=== PATIENT | female | born 1975 | race Hispanic/Latino ===

== ENCOUNTER → 2018-10-04 | Day surgery (SDC) | payer BC ==
[~2018-10-04] MED LIST: ACETAMINOPHEN 1000 MG/100 ML IV ONE; ASPIR 8181 MG PO; CLONIDINE PO; COREG12.5 MG PO; CYMBALTA30 MG PO; DEXAMETHASONE SOD PHOS INJ 4 MG/ML VIAL ONE; EXCEDRIN MIGRA1 EAC3 PO; FENTANYL CITRATE/PF 100MCG/2 ML INJ ONE; GLYCOPYRROLATE INJ 1MG/ 5 ML SYR ONE; HYDRALAZINE HCL 20 MG/ML VIAL ONE; HYDROMORPHONE 2MG/ML 2 MG/ML ML ONE; IOPAMIDOL 610MG/1ML 300 MG/ML VIAL IV ONE; KLONOPIN1 MG PO; LEVOFLOXACIN 500MG/D5W 100ML 100 ML IV ONE; LIDOCAINE HCL 2% LOCAL INJ 5 ML SDV VIAL INJ ONE; LIPITOR10 MG PO; LISINOPRIL-HCT1 EAC1 PO; MAXALT10 MG PO; MIDAZOLAM HCL 2 MG/2 ML VIAL ONE; MORPHINE SULFATE INJ 4 MG/ML INJ 1ML ONE; ONDANSETRON HCL INJ 2MG/ML 2ML 2 MG/ML VIAL ONE; PROPOFOL IV EMULSION 10 MG/ML 20 ML VIAL ONE; SEVOFLURANE INHAL SOLN 250 ML PEN BTL ONE; TRAZODONE HCL50 MG PO
--- OUTSIDE RECORDS SUMMARY | 2018-10-04 06:02 | XMS REPORT | Clinical Summary ---
Author Author [facility] Organization [facility] Address Unknown Phone Unavailable Care Team Providers Care Snailer Name Role Phone Lorne Mcintosh MD PCP Allergies No Known Allergies Medications End Date Status Medication Sig Dispensed Refills Start Date Active escitalopram (LEXAPRO) 20 Take 20 mg by 0 MG tablet mouth daily. Active clonAZEPAM (KlonoPIN) 1 Take 1 mg by 0 MG tablet mouth 3 (three) times a day as needed. Active zolpidem (AMBIEN) 10 mg Take 10 mg by 0 tablet mouth nightly as needed for sleep. Active traZODone (DESYREL) 50 MG Take 50 mg by 0 tablet mouth nightly. Active ARIPiprazole (ABILIFY) 5 0 MG tablet 8 Active clonIDINE (CATAPRES) 0.1 0 MG tablet 8 Active eszopiclone (LUNESTA) 3 0 mg tablet 8 Active hydrALAZINE (APRESOLINE) 0 50 MG tablet 8 Active lisinopril-hydrochlorothi 0 azide 8 (PRINZIDE,ZESTORETIC) 20-25 mg per tablet Active rizatriptan [employer]LE FIN[employer] INSPECTOR 0 (MAXALT-SHUTTLE FINAL INSPECTOR) 10 MG 8 disintegrating tablet 07/05/2018 ibuprofen (ADVIL,MOTRIN) Take 1 tablet 30 tablet 0 600 MG tablet (600 mg 8 total) by mouth every 8 (eight) hours as needed for moderate pain for up to 30 days. 08/08/2018 ibuprofen (ADVIL,MOTRIN) Take 1 tablet 30 tablet 0 600 MG tablet (600 mg 9 total) by mouth every 6 (six) hours as needed for moderate pain for up to 30 days. Active Problems Not on file Encounters Care Team Description Date Type Specialty Frandy Chamorro MD Calculus of ureter (Primary Dx); Uric acid nephrolithiasis 09/28/2018 Transcribe Access Orders Gurvinder Egan Jr., MD Allodynia (Primary Dx); Drug-seeking behavior; Depression with somatization 07/08/2018 Emergency Emergency Medicine - 07/09/2018 Gurvinder Egan Jr., MD Chest pain, unspecified type (Primary Dx) 06/04/2018 Emergency Emergency Medicine - 06/05/2018 after 10/03/2017 Social History Date Tobacco Use Types Packs/Day Years Used Current Every Day Smoker Smokeless Tobacco: Never Used Tobacco Cessation: Ready to Quit: No; Counseling Given: Yes Comments: 2-3 cigs/day Alcohol Use Drinks/Week oz/Week Comments Yes socially Sex Assigned at Date Recorded Not on file Industry Job Start Date Occupation Not on file Not on file Not on file Travel End Travel History Travel Start No recent travel history available. Last Filed Vital Signs Time Taken Vital Sign Reading 07/09/2018 2:58 AM [employer] Blood Pressure 159/91 07/09/2018 2:58 AM [employer]IST Pulse 72 07/08/2018 9:55 PM [employer] Temperature 36.9 C (98.5 F) 07/09/2018 2:58 AM [employer]IST Respiratory Rate 18 07/09/2018 2:58 AM [employer]IST Oxygen Saturation 100% - Inhaled Oxygen - Concentration 07/08/2018 9:55 PM [employer]IST Weight 64.4 kg (142 lb) 07/08/2018 9:55 PM [employer] Height 162.6 cm (5' 4") 07/08/2018 9:55 PM [employer]IST Body Mass Index 24.37 Plan of Treatment Health Maintenance Due Date Last Done Comments CERVICAL CANCER SCREENING 1997 INFLUENZA VACCINE 01/18/2019 Procedures Comments Procedure Name Priority Date/Time Associated Diagnosis XR ABDOMEN 1 VW Routine 09/28/2018 Calculus of ureter 11:16 AM CDT Uric acid nephrolithiasis HCG QUALITATIVE, URINE Routine 07/09/2018 SCREEN 12:05 AM PATENT LAW SPECIALIST ESTIMATED GFR STAT 07/08/2018 11:34 PM [employer]ENT [employer]IST TROPONIN STAT 07/08/2018 11:34 PM [employer]ENT [employer]IST COMPREHENSIVE METABOLIC STAT 07/08/2018 PANEL 11:34 PM PATENT [employer] SPECIALIST HC COMPLETE BLD COUNT STAT 07/08/2018 W/AUTO DIFF 11:34 PM PATENT [employer]IST ECG ED PRELIMINARY Routine 07/08/2018 INTERPRETATION 11:13 PM [employer]IST RESPIRATORY PATHOGEN Routine 07/08/2018 PANEL 11:04 PM [employer]IST INFLUENZA ANTIGEN TEST, Routine 07/08/2018 REFLEX NEGATIVE TO RPP 11:04 PM PATENT [employer] SPECIALIST ECG 12-LEAD STAT 07/08/2018 10:53 PM PATENT [employer] SPECIALIST XR CHEST 2 VW STAT 07/08/2018 10:34 PM PATENT [employer] SPECIALIST TROPONIN Timed 06/05/2018 1:56 AM PATENT [employer] SPECIALIST XR CHEST 1 VW PORTABLE STAT 06/05/2018 12:05 AM PATENT [employer] SPECIALIST ECG ED PRELIMINARY Routine 06/05/2018 INTERPRETATION 12:01 AM PATENT LAW SPECIALIST ESTIMATED GFR STAT 06/04/2018 10:45 PM PATENT [employer] SPECIALIST B NATRIURETIC PEPTIDE STAT 06/04/2018 10:45 PM [employer]ENT [employer] SPECIALIST TROPONIN STAT 06/04/2018 10:45 PM PATENT [employer] SPECIALIST COMPREHENSIVE METABOLIC STAT 06/04/2018 PANEL 10:45 PM [employer]ENT [employer] SPECIALIST HC COMPLETE BLD COUNT STAT 06/04/2018 W/AUTO DIFF 10:45 PM PATENT LAW SPECIALIST ECG 12-LEAD STAT 06/04/2018 10:38 PM PATENT [employer] SPECIALIST after 10/03/2017 Results * XR Abdomen 1 Vw (09/28/2018 11:16 AM CDT) Narrative Performed At EXAMINATION:XR ABDOMEN 1 VW [facility] CLINICAL HISTORY:N20.1 Calculus of ureter, N20.0 Calculus of kidney, n20.1 n20.0 IMPRESSION: There are multiple pelvic phleboliths. There is a small calcification seen in the midpole the right kidney. Left kidney is obscured by overlying gas and stool. Intestinal gas pattern is nonspecific. Regional skeleton is intact. CT scan may provide additional information if clinically indicated. [facility] [id number] Procedure Note Hm Interface, Radiology Results Incoming - 09/28/2018 11:33 AM CDT EXAMINATION: XR ABDOMEN 1 VW CLINICAL HISTORY: N20.1 Calculus of ureter, N20.0 Calculus of kidney, n20.1 n20.0 IMPRESSION: There are multiple pelvic phleboliths. There is a small calcification seen in the midpole the right kidney. Left kidney is obscured by overlying gas and stool. Intestinal gas pattern is nonspecific. Regional skeleton is intact. CT scan may provide additional information if clinically indicated. [facility] [id number] Performing Organization Address City/State/Zipcode Phone Number [facility] [address] [place] [address] * hCG qualitative, urine screen (07/09/2018 12:05 AM PATENT LAW SPECIALIST) hCG qualitative, urine Negative Negative [facility] Comment: [facility] The manufacturers stated sensitivity of HcG test for serum is >/=10 mIU/ml and urine is >/=20mIU/ml. Specimen Urine Performing Organization Address City/[facility]/Zipcode Phone Number [facility] DEPARTMENT OF [address] [place] [address] PATHOLOGY AND GENOMIC MEDICINE [address] * Estimated GFR (07/08/2018 11:34 PM PATENT LAW SPECIALIST) Only the most recent of 2 results within the time period is included. Estimated GFR >=90 mL/min/1.73 m2 [facility] Comment: [facility] CatergoryUnitsInte rpretation G1 >=90 Normal or high G2 60-89Mildly decreased [id number] Mildly to moderately decreased P2x17-01 Moderately to severely decreased G4 15-29Severely decreased G5 <15Kidney failure The eGFR was calculated using the Chronic Kidney Disease Epidemiology Collaboration (CKD-EPI) equation. Interpretation is based on recommendations of the National Kidney Foundation-Kidney Disease Outcomes Quality Initiative (NKF-KDOQI) published in 2014. Specimen Plasma specimen Performing Organization Address City/[facility]/Zipcode Phone Number [facility] [address] [place] [phone] PATHOLOGY AND GENOMIC MEDICINE [address] * Troponin (07/08/2018 11:34 PM PATENT LAW SPECIALIST) Only the most recent of 3 results within the time period is included. Troponin <0.30 0.00 - 0.30 ng/mL [facility] Comment: [facility] 0.11 - 1.49 ng/mlMay indicate increased risk of acute coronary syndrome. >=1.5 ng/ml Consistent with acute myocardial infarction. The diagnostic value of a single normal or non-diagnostic result is questionable.Serial samples at 2-6 hour intervals are required to rule out acute myocardial injury. Specimen Plasma specimen Performing Organization Address City/[facility] [place] [address] PATHOLOGY AND GENOMIC MEDICINE [address] * CBC with platelet and differential (07/08/2018 11:34 PM PATENT [employer] SPECIALIST) Only the most recent of 2 results within the time period is included. WBC 8.6 4.2 - 11.0 k/uL [facility] RBC 3.72 (L) 4.04 - 5.86 m/uL [facility] HGB 12.0 11.5 - 15.3 g/dL [facility] HCT 36.0 34.0 - 45.0 % [facility] MCV 96.8 80.0 - 98.0 fL [facility] MCH 32.3 27.0 - 34.0 pg [facility] MCHC 33.3 31.5 - 36.5 g/dL [facility] RDW - SD 41.4 37.0 - 51.0 fL [facility] MPV 9.2 7.4 - 10.4 fL [facility] Platelet count 335 150 - 400 k/uL [facility] Nucleated RBC 0.00 /100 WBC [facility] Neutrophils 66.0 36.0 - 66.0 % [facility] Lymphocytes 24.2 24.0 - 44.0 % [facility] Monocytes 8.0 (H) 0.0 - 6.0 % [facility] Eosinophils 1.3 0.0 - 6.0 % [facility] Basophils 0.3 0.0 - 1.2 % [facility] Immature granulocytes 0.2 0.0 - 1.0 % [facility] Specimen Blood Performing Organization Address City/State/Zipcode Phone Number [facility] DEPARTMENT OF [address] [place] [address] PATHOLOGY AND GENOMIC MEDICINE [facility] [address] [place], [place] [phone] [place] [address] * Comprehensive metabolic panel (07/08/2018 11:34 PM PATENT LAW SPECIALIST) Only the most recent of 2 results within the time period is included. Sodium 137 135 - 150 mEq/L [facility] Potassium 3.2 (L) 3.5 - 5.0 mEq/L [facility] Chloride 102 98 - 112 mEq/L [facility] CO2 23 (L) 24 - 31 mmol/L [facility] Anion gap 12@ANIO 7 - 15 mEq/L [facility] BUN 8 7 - 18 mg/dL [facility] Creatinine 0.50 0.50 - 0.90 mg/dL [facility] Glucose 100 65 - 100 mg/dL [facility] Calcium 9.2 8.3 - 10.2 mg/dL [facility] Protein 6.8 6.3 - 8.3 g/dL [facility] Albumin 3.4 (L) 3.5 - 5.0 g/dL [facility] A/G ratio 1.0 0.7 - 3.8 [facility] Alkaline phosphatase 62 0 - 104 U/L [facility] AST 15 10 - 35 U/L [facility] ALT 14 5 - 50 U/L [facility] Total bilirubin <0.3 0.2 - 1.2 mg/dL [facility] Specimen Plasma specimen Performing Organization Address City/State/Zipcode Phone Number [facility] DEPARTMENT OF [address] [place] [address] PATHOLOGY AND GENOMIC MEDICINE [facility] [address] [place], [place] [phone] [place] [address] * ECG ED Preliminary Interpretation - Not an Order (07/08/2018 11:13 PM PATENT [employer] SPECIALIST) Only the most recent of 2 results within the time period is included. Narrative Performed At Gurvinder Egan Jr., MD 07/09/20182:36 PM ECG ED Preliminary Interpretation - Not an Order Performed by: Gurvinder Egan Jr., MD Authorized by: Gurvinder Egan Jr., MD ECG reviewed by ED Physician in the absence of a merchandising director: yes Interpretation: Interpretation: normal Rate: ECG rate:73 ECG rate assessment: normal Rhythm: Rhythm: sinus rhythm Ectopy: Ectopy: none QRS: QRS axis:Normal QRS intervals:Normal Conduction: Conduction: normal ST segments: ST segments:Normal T waves: T waves: normal Comments: No STEMI. * Respiratory pathogen panel (07/08/2018 11:04 PM PATENT LAW SPECIALIST) Respiratory pathogen Negative for all pathogens [facility] panel tested: HOSPITAL Negative for Adenovirus Negative for Coronavirus HKU1 Negative for Coronavirus NL63 Negative for Coronavirus 229E Negative for Coronavirus OC43 Negative for Human Metapneumovirus Negative for Rhinovirus/Enterovirus Negative for Influenza A Negative for Influenza A/H1 Negative for Influenza A/H3 Negative for Influenza A/H1-2009 Negative for Influenza B Negative for Parainfluenza Virus 1 Negative for Parainfluenza Virus 2 Negative for Parainfluenza Virus 3 Negative for Parainfluenza Virus 4 Negative for Respiratory Syncytial Virus Negative for Bordetella pertussis Negative for Chlamydophila pneumoniae Negative for Mycoplasma pneumoniae This real-time PCR assay detects the presence of nucleic acids (RNA or DNA) for the respiratory pathogens listed. A result of "Not-detected" does not exclude the possibility of the presence of one or more pathogens at concentrations less than the detectable limits of the assay. Comment: Specimen Information Specimen Source: Nares Specimen Site: Right Specimen Nares - Right Performing Organization Address City/[facility]/Zipcode Phone Number [facility] DEPARTMENT OF [address] [place] [address] PATHOLOGY AND GENOMIC MEDICINE [facility] [address] [place], [place] [phone] [place] [address] * Influenza antigen test, reflex negative to RPP (07/08/2018 11:04 PM PATENT LAW SPECIALIST) Influenza antigen Negative for Influenza A/B [facility]. [facility] Comment: Specimen Information Specimen Source: Nares Specimen Site: Right Specimen Nares - Right Performing Organization Address [facility]/Zipcode Phone Number [facility] [address] [facility] [place] [address] PATHOLOGY AND GENOMIC MEDICINE [place] [phone] [facility] [place], [place] [phone] [place] [address] * ECG 12 lead (07/08/2018 10:53 PM PATENT [employer] SPECIALIST) Only the most recent of 2 results within the time period is included. Ventricular rate 73 [facility] Atrial rate 73 [facility] WV interval 176 [facility] QRSD interval 86 [facility] QT interval 400 [facility] QTC interval 440 [facility] P axis 1 33 [facility] QRS axis 1 44 [facility] T wave axis 62 [facility] EKG impression Normal sinus rhythm-Normal [facility] MUSE ECG-In automated comparison with ECG of 04-JUN-2018 22:38,-No significant change was found- Narrative Performed At Performing Organization Address [facility] Cent[facility]ode Phone Number [facility] MUSE [address] [place] [address] * XR Chest 2 Vw (07/08/2018 10:34 PM PATENT [employer] SPECIALIST) Narrative Performed At EXAMINATION:XR CHEST 2 VW [facility] CLINICAL HISTORY:body aches COMPARISON:06/04/2018. FINDINGS: Two views of the chest demonstrate normal cardiomediastinal silhouette. Pulmonary vasculature is within normal limits. Both lungs are clear. No pleural disease is identified. Regional osseous structures is unremarkable. IMPRESSION: No radiographic evidence of acute cardiopulmonary process or active disease of the chest. [id number] Procedure Note Interface, Radiology Results Incoming - 07/08/2018 10:46 PM PATENT [employer] SPECIALIST EXAMINATION: XR CHEST 2 VW CLINICAL HISTORY: body aches COMPARISON: 06/04/2018. FINDINGS: Two views of the chest demonstrate normal cardiomediastinal silhouette. Pulmonary vasculature is within normal limits. Both lungs are clear. No pleural disease is identified. Regional osseous structures is unremarkable. IMPRESSION: No radiographic evidence of acute cardiopulmonary process or active disease of the chest. [facility]-[id number] Performing Organization Address [facility] Phone Number [facility] [address] [place] [address] * XR Chest 1 Vw Portable (06/05/2018 12:05 AM PATENT [employer] SPECIALIST) Narrative Performed At Examination:XR CHEST 1 VW PORTABLE [facility] Clinical History:chest pain Comparison: None. Technique: Single frontal view of the chest is obtained. Findings: The lungs are free of infiltrate. The heart size is normal. No pleural effusion is seen. Impression: No active cardiopulmonary disease identified. [facility]-[id number] Procedure Note Interface, Radiology Results Incoming - 06/05/2018 12:33 AM PATENT LAW SPECIALIST Examination: XR CHEST 1 VW PORTABLE Clinical History: chest pain Comparison: None. Technique: Single frontal view of the chest is obtained. Findings: The lungs are free of infiltrate. The heart size is normal. No pleural effusion is seen. Impression: No active cardiopulmonary disease identified. [id number] Performing Organization Address [facility] Phone Number [facility] [address] [place] [address] * B natriuretic peptide (06/04/2018 10:45 PM PATENT [employer] SPECIALIST) BNP 90 0 - 100 pg/mL [facility] Specimen Blood Performing Organization Address [facility] Cent[facility]ode Phone Number [facility] DEPARTMENT OF [address] [place] [address] PATHOLOGY AND GENOMIC MEDICINE [place] [address] [place], [place] [phone] [place] [address] after 10/03/2017 Insurance Payer Benefit Subscriber ID Type Phone Address Plan / Group BCBS BCBS xxxxxxxxxxxx PPO CHOICE PPO/NITO CARVAJAL PPO Advance Directives Patient has advance care planning documents on file. For more information, catalino glass contact: Ryan Hamilton [address] [place] [address]
--- OUTSIDE RECORDS SUMMARY | 2018-10-04 06:02 | XMS REPORT ---
[facility] Address Unknown Phone Unavailable Care Team Providers Care Data Communications Technician Name Role Phone Unavailable Unavailable Payers Payer Name Policy Type Policy Number Effective Date Expiration Date Problems This patient has no known problems. Allergies, Adverse Reactions, Alerts Allergy Name Allergy Type Status Severity Reaction(s) Onset Date Inactive Date Treating Clinician Comments No Known Allergies DA Active U 2018-07-09 00:00:00 No Known Drug Allergies DA Active U 2015-07-11 00:00:00 Medications This patient has no known medications. Results Test Description Test Time Test Comments Text Results Atomic Results Result Comments TROPONIN-I 2018-09-22 09:42:00 TROPONIN-I (test code=TROPI) <0.015 ng/mL 0-0.045 COMMENTS TO SLED MAKER: COLLECT 3 HOURS AFTER PREVIOUS [id number] 07:40:00* Test Item Value Reference Range Comments TROPONIN-I (test code=TROPI) <0.015 ng/mL 0-0.045 COMMENTS TO SLED MAKER: COLLECT 3 HOURS AFTER PREVIOUS [id number] 04:03:00* Test Item Value Reference Range Comments GLYCOSYLATED HEMOGLOBIN (HA1C) (test code=GLYHGB) 5.1 % HbA1 4.8-6.0 ESTIMATED AVERAGE GLUCOSE (test code=EAG) 100 MG/DL LIPID PROFILE (CORONARY RISK)2018-09-22 03:56:00* Test Item Value Reference Range Comments TRIGLYCERIDES (test code=TRIG) 89 mg/dL 20-150 CHOLESTEROL (test code=CHOL) 173 mg/dL 0-200 CHOLESTEROL/HDL RATIO (test code=CHOLHDL) 2.0 RATIO 0-4.9 RISK ASSOCIATED WITH CHOL/HDL RATIOS: Risk Male Female1/2 AVERAGE 3.43 3.27AVERAGE 4.97 4.442X AVERAGE 9.55 7.053X AVERAGE 23.39 11.04 REFERENCE VALUE IS RELATED TO RISK LEVELS ASRECOMMENDED BY THE [facility]. HEART, LUNG, AND BLOOD INST. HDL CHOLESTEROL (test code=HDL) 85 mg/dL 40-60 LIPOPROTEIN LDL (test code=LDL) 71 mg/dL 100-129 Reference Interval: mg/dL mmol/L Optimal <100 <2.6Near/above optimal 100-129 2.6- 3.3Borderline High 130-159 3.4-4.1High 160-189 4.1-4.9Very High >=190 >=4.9=========This LDL result is a direct measurement.========= BASIC METABOLIC [id number] 23:49:00* Test Item Value Reference Range Comments SODIUM (test code=NA) 141 mmol/L 136-145 POTASSIUM (test code=K) 3.2 mmol/L 3.5-5.1 Results called to by JUN1 09/21/18 2349Critical results verified and read back by Nurse? CHLORIDE (test code=CL) 104.0 mmol/L 98-107 CARBON DIOXIDE (test code=CO2) 30.0 mmol/L 21-32 ANION GAP (test code=GAP) 10.2 10-20 GLUCOSE (test code=GLU) 74 mg/dL 74-106 BLOOD UREA NITROGEN (test code=BUN) 12 mg/dL 7-18 GLOMERULAR FILTRATION RATE (test code=GFR) > 60 mL/min >=60 Estimated GFR by using Modified MDRD formula.Chronic kidney disease is defined as either kidney damageor GFR <60 mL/min/1.73 m2 for >3 months. CREATININE (test code=CREAT) 0.50 mg/dL 0.55-1.02 Note change in reference range due to change in reagent. BUN/CREATININE RATIO (test code=BUN/CREA) 24.0 10-20 CALCIUM (test code=CA) 8.7 mg/dL 8.5-10.1 [id number] 23:49:00* Test Item Value Reference Range Comments TROPONIN-I (test code=TROPI) <0.015 ng/mL 0-0.045 CBC W/O [id number] 23:49:00* Test Item Value Reference Range Comments WHITE BLOOD CELL (test code=WBC) 8.5 K/mm3 4.5-12.5 RED BLOOD CELL (test code=RBC) 3.89 mill/mm3 3.7-5.2 HEMOGLOBIN (test code=HGB) 12.3 gram/dL 11.5-15.5 HEMATOCRIT (test code=HCT) 38.0 % 36.0-46.0 MEAN CELL VOLUME (test code=MCV) 97.7 fL 80-98 MEAN CELL HGB (test code=MCH) 31.6 picogram 27.0-33.0 MEAN CELL HGB CONCETRATION (test code=MCHC) 32.4 gram/dL 33.0-36.0 RED CELL DISTRIBUTION WIDTH (test code=RDW) 11.5 % 11.6-16.2 PLATELET COUNT (test code=PLT) 316 K/mm3 150-450 MEAN PLATELET VOLUME (test code=MPV) 9.1 fL 6.7-11.0 CBC W/O [id number] 23:43:00* Test Item Value Reference Range Comments WHITE BLOOD CELL (test code=WBC) K/mm3 4.5-12.5 RED BLOOD CELL (test code=RBC) mill/mm3 3.7-5.2 HEMOGLOBIN (test code=HGB) 12.3 gram/dL 11.5-15.5 HEMATOCRIT (test code=HCT) 38.0 % 36.0-46.0 MEAN CELL VOLUME (test code=MCV) fL 80-98 MEAN CELL HGB (test code=MCH) picogram 27.0-33.0 MEAN CELL HGB CONCETRATION (test code=MCHC) gram/dL 33.0-36.0 RED CELL DISTRIBUTION WIDTH (test code=RDW) % 11.6-16.2 PLATELET COUNT (test code=PLT) K/mm3 150-450 MEAN PLATELET VOLUME (test code=MPV) fL 6.7-11.0 HCG SERUM [id number] 23:35:00* Test Item Value Reference Range Comments HCG SERUM QUAL (test code=HCGQL) NEGATIVE NEGATIVE This HCGQL test is NOT applicable for MALE patients.Check with nurse about probable order error.If Tumor Marker Test needed, nurse should order test "HCGTU"(Test #550.76498) - XR CHEST 1 [id number] 23:26:00 FAX: Karyna Reid DO [place]: [address]: REG Name: RIZWANA LONG [facility] : [birth year] Age/S: 43/F [address] Unit #: [id number] Loc: [place] [address] Phys: Karyna Reid DO Acct: [id number] Dis Date: Status: REG ER PHONE #: [phone] Exam Date: 09/21/2018 2300 FAX #: [phone] Reason: CHEST PAIN EXAMS: CPT CODE: [id number] XR CHEST 1 V [id number] EXAM: - XR CHEST 1 V HISTORY: Chest pain. COMPARISON: July 09, 2018. FINDINGS: Single AP view of the chest is provided. Heart si ze and vascularity are within normal limits. The lungs are clear of focal consolidation. No effusion, pneumothorax, or acute osseous abnormality. IMPRESSION: No radiographic evidence of acute ca rdiopulmonary process. at 7967 Reported and signed by: Mary Kate Knox MD CC: Karyna Reid DO Technologist: Gladys Gunderson nscrd Date/Time/By: 09/21/2018 (6805) : By: [email or web address] Orig Print D/T: S: 09/21/2018 (2156) PAGE 1 Shonda d Report - XR CHEST 1 [id number] 05:07:00 FAX: Joe Swartz MD [phone] [place]: [address]: REG FAX: Dinh Tio Saab [phone] Name: RIZWANA HERRERA [facility] : 1975 Age/S: 43/F [address] [facility] Unit #: [id number] Loc: [place] [address] Phys: Joe Swartz MD Acct: [id number] Dis Date: Status: REG ER PHONE #: [phone] Exam Date: 07/09/2018 0506 FAX #: [phone] Reason: CHEST PAIN EXAMS: CPT CODE: [id number] XR CHEST 1 V 45215 HISTORY: Chest pain. Location: C3 COMPARISO N:05/17/2018 FINDINGS: Aortic calcifications are pre sent. Heart size and vascularity are within normal limits. The lung s are clear of focal consolidation. No effusion, pneumothorax, or acute o sseous abnormality. IMPRESSION: 1. No focal consolidation. No other acute abnormalities. Electronically S igned by Richie Barragan MD on 07/09/2018 at 0507 Reported and signed by: Richie Barragan MD CC: Joe Swartz MD; Tio Nolen MD Technologist: Farzana Upton Trnscrd Date/Time/By: 07/09/2018 (0507) : By: [email or web address] Orig Print D/T: S: 07/09/2018 (0510) PAGE 1 Signed Report BASIC METABOLIC [id number] 04:47:00* Test Item Value Reference Range Comments SODIUM (test code=NA) 142 mmol/L 136-145 POTASSIUM (test code=K) 3.5 mmol/L 3.5-5.1 CHLORIDE (test code=CL) 108.0 mmol/L 98-107 CARBON DIOXIDE (test code=CO2) 25.0 mmol/L 21-32 ANION GAP (test code=GAP) 12.5 10-20 GLUCOSE (test code=GLU) 86 mg/dL 74-106 BLOOD UREA NITROGEN (test code=BUN) 7 mg/dL 7-18 GLOMERULAR FILTRATION RATE (test code=GFR) > 60 mL/min >=60 Estimated GFR by using Modified MDRD formula.Chronic kidney disease is defined as either kidney damageor GFR <60 mL/min/1.73 m2 for >3 months. CREATININE (test code=CREAT) 0.50 mg/dL 0.55-1.02 Note change in reference range due to change in reagent. BUN/CREATININE RATIO (test code=BUN/CREA) 12.8 10-20 CALCIUM (test code=CA) 8.2 mg/dL 8.5-10.1 HCG SERUM [id number] 04:47:00* Test Item Value Reference Range Comments HCG SERUM QUAL (test code=HCGQL) NEGATIVE NEGATIVE This HCGQL test is NOT applicable for MALE patients.Check with nurse about probable order error.If Tumor Marker Test needed, nurse should order test "HCGTU"(Test #550.27290) [id number] 04:47:00* Test Item Value Reference Range Comments TROPONIN-I (test code=TROPI) <0.015 ng/mL 0-0.045 BASIC METABOLIC [id number] 04:39:00* Test Item Value Reference Range Comments SODIUM (test code=NA) 142 mmol/L 136-145 POTASSIUM (test code=K) 3.5 mmol/L 3.5-5.1 CHLORIDE (test code=CL) 108.0 mmol/L 98-107 CARBON DIOXIDE (test code=CO2) mmol/L 21-32 ANION GAP (test code=GAP) 10-20 GLUCOSE (test code=GLU) mg/dL 74-106 BLOOD UREA NITROGEN (test code=BUN) mg/dL 7-18 GLOMERULAR FILTRATION RATE (test code=GFR) mL/min >=60 CREATININE (test code=CREAT) mg/dL 0.55-1.02 BUN/CREATININE RATIO (test code=BUN/CREA) 10-20 CALCIUM (test code=CA) mg/dL 8.5-10.1 HCG SERUM [id number] 04:39:00* Test Item Value Reference Range Comments HCG SERUM QUAL (test code=HCGQL) NEGATIVE NEGATIVE This HCGQL test is NOT applicable for MALE patients.Check with nurse about probable order error.If Tumor Marker Test needed, nurse should order test "HCGTU"(Test #550.25366) [id number] 04:39:00* Test Item Value Reference Range Comments TROPONIN-I (test code=TROPI) ng/mL 0-0.045 BASIC METABOLIC [id number] 04:38:00* Test Item Value Reference Range Comments SODIUM (test code=NA) 142 mmol/L 136-145 POTASSIUM (test code=K) 3.5 mmol/L 3.5-5.1 CHLORIDE (test code=CL) 108.0 mmol/L 98-107 CARBON DIOXIDE (test code=CO2) mmol/L 21-32 ANION GAP (test code=GAP) 10-20 GLUCOSE (test code=GLU) mg/dL 74-106 BLOOD UREA NITROGEN (test code=BUN) mg/dL 7-18 GLOMERULAR FILTRATION RATE (test code=GFR) mL/min >=60 CREATININE (test code=CREAT) mg/dL 0.55-1.02 BUN/CREATININE RATIO (test code=BUN/CREA) 10-20 CALCIUM (test code=CA) mg/dL 8.5-10.1 HCG SERUM [id number] 04:38:00* Test Item Value Reference Range Comments HCG SERUM QUAL (test code=HCGQL) NEGATIVE [id number] 04:38:00* Test Item Value Reference Range Comments TROPONIN-I (test code=TROPI) ng/mL 0-0.045 TROPONIN I [id number] 04:30:00* Test Item Value Reference Range Comments TROPONIN I RAPID (test code=TROPIRAP) 0.00 ng/mL <0.08 Please Note New Reference Range 0.00-0.079 ng/mL - Negative>or=0.08 ng/mL - Positive The use of serial sampling and testing protocol is arecommended practice.An elevated troponin level alone is often not sufficient fordiagnosis of myocardial infarction. Troponin results obtained by different assays may vary.Evaluation of the extent of myocardial damage based onincrease of troponin would be valid only if similarmethodology is used. CBC W/O [id number] 04:26:00* Test Item Value Reference Range Comments WHITE BLOOD CELL (test code=WBC) 6.9 K/mm3 4.5-12.5 RED BLOOD CELL (test code=RBC) 3.71 mill/mm3 3.7-5.2 HEMOGLOBIN (test code=HGB) 12.0 gram/dL 11.5-15.5 HEMATOCRIT (test code=HCT) 36.6 % 36.0-46.0 MEAN CELL VOLUME (test code=MCV) 98.7 fL 80-98 MEAN CELL HGB (test code=MCH) 32.3 picogram 27.0-33.0 MEAN CELL HGB CONCETRATION (test code=MCHC) 32.8 gram/dL 33.0-36.0 RED CELL DISTRIBUTION WIDTH (test code=RDW) 11.6 % 11.6-16.2 PLATELET COUNT (test code=PLT) 318 K/mm3 150-450 MEAN PLATELET VOLUME (test code=MPV) 9.1 fL 6.7-11.0 CREATINE KINASE (CK)2018-07-07 16:02:00* Test Item Value Reference Range Comments CREATINE KINASE (CK) (test code=CK) 62 IUnit/L 26-208 THYROID STIMULATING [id number] 16:02:00* Test Item Value Reference Range Comments THYROID STIMULATING HORMONE (test code=TSH) 4.300 uIU/mL 0.36-3.74 TSH REFERENCE RANGES: EUTHYROID: 0.35 - 4.3 mIU/mL HYPO : > 5.5 mIU/mL HYPER : < 0.35 mIU/mL [id number] 04:30:00* Test Item Value Reference Range Comments TROPONIN-I (test code=TROPI) <0.015 ng/mL 0-0.045 [id number] 00:37:00* Test Item Value Reference Range Comments CKMB (test code=CKMBT) < 1.0 ng/mL 0-6.0 [id number] 00:29:00* Test Item Value Reference Range Comments TROPONIN-I (test code=TROPI) <0.015 ng/mL 0-0.045 COMPREHENSIVE METABOLIC [id number] 00:29:00* Test Item Value Reference Range Comments SODIUM (test code=NA) 140 mmol/L 136-145 POTASSIUM (test code=K) 3.5 mmol/L 3.5-5.1 CHLORIDE (test code=CL) 106.0 mmol/L 98-107 CARBON DIOXIDE (test code=CO2) 28.0 mmol/L 21-32 ANION GAP (test code=GAP) 9.5 10-20 GLUCOSE (test code=GLU) 100 mg/dL 74-106 BLOOD UREA NITROGEN (test code=BUN) 6 mg/dL 7-18 GLOMERULAR FILTRATION RATE (test code=GFR) > 60 mL/min >=60 Estimated GFR by using Modified MDRD formula.Chronic kidney disease is defined as either kidney damageor GFR <60 mL/min/1.73 m2 for >3 months. CREATININE (test code=CREAT) 0.60 mg/dL 0.55-1.02 Note change in reference range due to change in reagent. BUN/CREATININE RATIO (test code=BUN/CREA) 10.6 10-20 TOTAL PROTEIN (test code=PROT) 6.3 gram/dL 6.4-8.2 ALBUMIN (test code=ALB) 3.3 g/dL 3.4-5.0 GLOBULIN (test code=GLOB) 3.0 gram/dL 2.7-4.2 ALBUMIN/GLOBULIN RATIO (test code=A/G) 1.1 0.75-1.50 CALCIUM (test code=CA) 8.0 mg/dL 8.5-10.1 BILIRUBIN TOTAL (test code=BILT) 0.20 mg/dL 0.0-1.0 SGOT/AST (test code=AST) 11 IUnit/L 15-37 SGPT/ALT (test code=ALT) 18 IUnit/L 12-78 ALKALINE PHOSPHATASE TOTAL (test code=ALKP) 65 IUnit/L 45-117 Note change in reference range due to change in reagent. [id number] 00:29:00* Test Item Value Reference Range Comments PHOSPHORUS (test code=PHOS) 3.0 mg/dL 2.5-4.9 [id number] 00:29:00* Test Item Value Reference Range Comments MAGNESIUM (test code=MAG) 2.2 mg/dL 1.8-2.4 COMPREHENSIVE METABOLIC [id number] 00:20:00* Test Item Value Reference Range Comments SODIUM (test code=NA) 140 mmol/L 136-145 POTASSIUM (test code=K) 3.5 mmol/L 3.5-5.1 CHLORIDE (test code=CL) 106.0 mmol/L 98-107 CARBON DIOXIDE (test code=CO2) mmol/L 21-32 ANION GAP (test code=GAP) 10-20 GLUCOSE (test code=GLU) mg/dL 74-106 BLOOD UREA NITROGEN (test code=BUN) mg/dL 7-18 GLOMERULAR FILTRATION RATE (test code=GFR) mL/min >=60 CREATININE (test code=CREAT) mg/dL 0.55-1.02 BUN/CREATININE RATIO (test code=BUN/CREA) 10-20 TOTAL PROTEIN (test code=PROT) gram/dL 6.4-8.2 ALBUMIN (test code=ALB) g/dL 3.4-5.0 GLOBULIN (test code=GLOB) gram/dL 2.7-4.2 ALBUMIN/GLOBULIN RATIO (test code=A/G) 0.75-1.50 CALCIUM (test code=CA) mg/dL 8.5-10.1 BILIRUBIN TOTAL (test code=BILT) mg/dL 0.0-1.0 SGOT/AST (test code=AST) IUnit/L 15-37 SGPT/ALT (test code=ALT) IUnit/L 12-78 ALKALINE PHOSPHATASE TOTAL (test code=ALKP) IUnit/L 45-117 [id number] 00:20:00* Test Item Value Reference Range Comments PHOSPHORUS (test code=PHOS) mg/dL 2.5-4.9 [id number] 00:20:00* Test Item Value Reference Range Comments MAGNESIUM (test code=MAG) mg/dL 1.8-2.4 CBC W/AUTO [id number] 23:50:00* Test Item Value Reference Range Comments WHITE BLOOD CELL (test code=WBC) 9.3 K/mm3 4.5-12.5 RED BLOOD CELL (test code=RBC) 3.47 mill/mm3 3.7-5.2 HEMOGLOBIN (test code=HGB) 11.3 gram/dL 11.5-15.5 HEMATOCRIT (test code=HCT) 34.3 % 36.0-46.0 MEAN CELL VOLUME (test code=MCV) 98.8 fL 80-98 MEAN CELL HGB (test code=MCH) 32.6 picogram 27.0-33.0 MEAN CELL HGB CONCETRATION (test code=MCHC) 32.9 gram/dL 33.0-36.0 RED CELL DISTRIBUTION WIDTH (test code=RDW) 11.8 % 11.6-16.2 RED CELL DISTRIBUTION WIDTH SD (test code=RDW-SD) 43.0 fL 37.0-51.0 PLATELET COUNT (test code=PLT) 288 K/mm3 150-450 MEAN PLATELET VOLUME (test code=MPV) 9.1 fL 6.7-11.0 NEUTROPHIL % (test code=NT%) 66.0 % 39.0-69.0 IMMATURE GRANULOCYTE % (test code=IG%) 0.3 % 0.0-5.0 LYMPHOCYTE % (test code=LY%) 24.5 % 25.0-55.0 MONOCYTE % (test code=MO%) 7.9 % 0.0-10.0 EOSINOPHIL % (test code=EO%) 1.1 % 0.0-5.0 BASOPHIL % (test code=BA%) 0.2 % 0.0-1.0 NUCLEATED RBC % (test code=NRBC%) 0.0 % 0-0 NEUTROPHIL # (test code=NT#) 6.11 K/mm3 1.8-7.7 IMMATURE GRANULOCYTE # (test code=IG#) 0.03 x10 3/uL 0-0.03 LYMPHOCYTE # (test code=LY#) 2.27 K/mm3 1.0-5.0 MONOCYTE # (test code=MO#) 0.73 K/mm3 0-0.8 EOSINOPHIL # (test code=EO#) 0.10 K/mm3 0.0-0.5 BASOPHIL # (test code=BA#) 0.02 K/mm3 0.0-0.2 NUCLEATED RBC # (test code=NRBC#) 0.00 K/mm3 0.0-0.1
[2018-10-04 10:30] VITALS: BP 155/94
--- NOTE | 2018-10-04 17:35 | Operative Report ---
DATE OF PROCEDURE: 10/04/2018 SURGEON: Frandy Chamorro MD PREOPERATIVE DIAGNOSES: 1. Recurrent urinary tract infections. 2. Right renal calculus, mid calyx, 6 x 8 mm. POSTOPERATIVE DIAGNOSES: 1. Recurrent urinary tract infections. 2. Right renal calculus, mid calyx, 6 x 8 mm. OPERATIONS: 1. Cystourethroscopy and bilateral retrograde pyelogram. 2. Right renal extracorporeal shock wave lithotripsy. VETERINARY PHYSIOLOGIST: Dr. Ruben Rosenbaum. ANESTHETIC: General. DESCRIPTION OF PROCEDURE: Ms. Mancera is a 43-year-old female, who presented with a chief complaint of pain on the right side and gross hematuria. She also complained of recurrent urinary tract infections and pelvic pain. A CT scan showed a right renal calculus. This patient was placed on the table in the lithotomy position and was prepped and draped in a sterile manner after satisfactory general anesthesia. A 23-Greek cystoscope was used and cystourethroscopy was performed and it was noted that the urethra was normal. Cystoscopy was then performed using both right-angle and Foroblique lens and it was noted that the bladder mucosa was normal except for the trigone, which showed marked trigonitis with cobblestone appearance. Both ureteral orifices were seen and were within normal position, configuration, and efflux. Right retrograde pyelogram was then performed using #8 bulb tip. Urethral catheter inserted at the right ureteral orifice and 5 mL of contrast material was injected. The retrograde showed the calculus in the right mid calyx about 6 x 8 mm. Left retrograde pyelogram was performed similarly. The left retrograde was normal. The bladder was drained. Cystoscope removed and the patient was placed on the table in the supine position. The lithotripsy was then brought into position and the stone was brought into position between F1 and F2 of the fluoroscopic monitors. The lithotripsy was then started starting at 2 kilovolts and slowly and gradually increased to 7 kilovolts. Observation of the stone pulverization was done at 250 shocks. At 3000 shocks, it was felt that the stone has completely pulverized. The patient from the table was moved to the recovery room, the patient tolerated the procedure well. Plan for this lady is to be placed on Cipro 250 mg one twice a day for two weeks, then one every night for six weeks. Ultracet tablet one every 6 to 8 hours p.r.n. and was given 20. She is to return to the office in one month. Frandy Chamorro MD MA/GUS /[id number]
== END | disposition home or self-care (01) ==
LOC: OR 05:58
PROVIDERS: ATTEND Specialist
DX: N20.0 Calculus of kidney (principal); R31.9 Hematuria, unspecified; N30.21 Other chronic cystitis with hematuria; Z87.440 Personal history of urinary (tract) infections; R31.0 Gross hematuria
CPT/HCPCS: 50590; 81025; C1758; J0131; J0360; J1100; J1170; J1956; J2001; J2250; J2270; J2405; J2704; J3490; Q9967

== ENCOUNTER 2018-10-06 17:16 | Emergency (ER) | payer BC ==
[~2018-10-06] VITALS: Ht 160 cm; Wt 68.0 kg
[~2018-10-06 17:16] MED LIST changes: -ACETAMINOPHEN 1000 MG/100 ML IV ONE; -DEXAMETHASONE SOD PHOS INJ 4 MG/ML VIAL ONE; -FENTANYL CITRATE/PF 100MCG/2 ML INJ ONE; -GLYCOPYRROLATE INJ 1MG/ 5 ML SYR ONE; -HYDRALAZINE HCL 20 MG/ML VIAL ONE; -HYDROMORPHONE 2MG/ML 2 MG/ML ML ONE; -IOPAMIDOL 610MG/1ML 300 MG/ML VIAL IV ONE; -LEVOFLOXACIN 500MG/D5W 100ML 100 ML IV ONE; -LIDOCAINE HCL 2% LOCAL INJ 5 ML SDV VIAL INJ ONE; -MIDAZOLAM HCL 2 MG/2 ML VIAL ONE; -MORPHINE SULFATE INJ 4 MG/ML INJ 1ML ONE; -ONDANSETRON HCL INJ 2MG/ML 2ML 2 MG/ML VIAL ONE; -PROPOFOL IV EMULSION 10 MG/ML 20 ML VIAL ONE; -SEVOFLURANE INHAL SOLN 250 ML PEN BTL ONE
--- OUTSIDE RECORDS SUMMARY | 2018-10-06 17:20 | XMS REPORT | Clinical Summary ---
Author Author [facility] Organization [facility] Address Unknown Phone Unavailable Care Team Providers Care Porcelain Turner Name Role Phone Lorne Mcintosh MD PCP [...] (PRINZIDE,ZESTORETIC) 20-25 mg per tablet Active rizatriptan MILITARY ANALYST 0 (MAXALT-MILITARY ANALYST) 10 MG 8 disintegrating tablet 07/05/2018 ibuprofen [...] 06/04/2018 Emergency Emergency Medicine - 06/05/2018 after 10/05/2017 Social History Date Tobacco Use Types Packs/Day [...] Taken Vital Sign Reading 07/09/2018 2:58 AM INDUSTRIAL ENGINEER[employer] Blood Pressure 159/91 07/09/2018 2:58 AM INDUSTRIAL ENGINEERING Pulse 72 07/08/2018 9:55 PM INDUSTRIAL ENGINEERING Temperature 36.9 C (98.5 F) 07/09/2018 2:58 AM INDUSTRIAL ENGINEERING Respiratory Rate 18 07/09/2018 2:58 AM INDUSTRIAL ENGINEERING Oxygen Saturation 100% - Inhaled Oxygen - Concentration 07/08/2018 9:55 PM INDUSTRIAL ENGINEERING Weight 64.4 kg (142 lb) 07/08/2018 9:55 PM INDUSTRIAL ENGINEERING Height 162.6 cm (5' 4") 07/08/2018 9:55 PM INDUSTRIAL ENGINEERING Body Mass Index 24.37 Plan of Treatment Health Maintenance Due Date Last Done Comments CERVICAL CANCER SCREENING 1997 INFLUENZA VACCINE 01/18/2019 Procedures Comments Procedure Name Priority Date/Time Associated Diagnosis XR ABDOMEN 1 VW Routine 09/28/2018 Calculus of ureter 11:16 AM CDT Uric acid nephrolithiasis HCG QUALITATIVE, URINE Routine 07/09/2018 SCREEN 12:05 AM INDUSTRIAL ENGINEERING ESTIMATED GFR STAT 07/08/2018 11:34 PM INDUSTRIAL ENGINEERING TROPONIN STAT 07/08/2018 11:34 PM INDUSTRIAL ENGINEERING COMPREHENSIVE METABOLIC STAT 07/08/2018 PANEL 11:34 PM INDUSTRIAL ENGINEERING HC COMPLETE BLD COUNT STAT 07/08/2018 W/AUTO DIFF 11:34 PM INDUSTRIAL ENGINEERING ECG ED PRELIMINARY Routine 07/08/2018 INTERPRETATION 11:13 PM IND[employer]RIAL ENGINEERING RESPIRATORY PATHOGEN Routine 07/08/2018 PANEL 11:04 PM INDUSTRIAL ENGINEERING INFLUENZA ANTIGEN TEST, Routine 07/08/2018 REFLEX NEGATIVE TO RPP 11:04 PM INDUSTRIAL ENGINEERING ECG 12-LEAD STAT 07/08/2018 10:53 PM INDUSTRIAL ENGINEERING XR CHEST 2 VW STAT 07/08/2018 10:34 PM INDUSTRIAL ENGINEERING TROPONIN Timed 06/05/2018 1:56 AM INDUSTRIAL ENGINEERING XR CHEST 1 VW PORTABLE STAT 06/05/2018 12:05 AM INDUSTRIAL ENGINEERING ECG ED PRELIMINARY Routine 06/05/2018 INTERPRETATION 12:01 AM INDUSTRIAL ENGINEERING ESTIMATED GFR STAT 06/04/2018 10:45 PM INDUSTRIAL ENGINEERING B NATRIURETIC PEPTIDE STAT 06/04/2018 10:45 PM INDUSTRIAL ENGINEERING TROPONIN STAT 06/04/2018 10:45 PM INDUSTRIAL ENGINEERING COMPREHENSIVE METABOLIC STAT 06/04/2018 PANEL 10:45 PM INDUSTRIAL ENGINEERING HC COMPLETE BLD COUNT STAT 06/04/2018 W/AUTO DIFF 10:45 PM INDUSTRIAL ENGINEERING ECG 12-LEAD STAT 06/04/2018 10:38 PM INDUSTRIAL ENGINEERING after 10/05/2017 Results * XR Abdomen 1 Vw (09/28/2018 [...] may provide additional information if clinically indicated. [id number] Procedure Note Hm Interface, Radiology Results Incoming [...] may provide additional information if clinically indicated. [facility]-[id number] Performing Organization Address City/State/Zipcode Phone Number [facility] [address] [place] [address] * hCG qualitative, urine screen (07/09/2018 12:05 AM INDUSTRIAL ENGINEERING) hCG qualitative, urine Negative Negative [facility] Comment: [facility] The manufacturers stated sensitivity of HcG test for serum is >/=10 mIU/ml and urine is >/=20mIU/ml. Specimen Urine Performing Organization Address City/[facility]/Zipcode Phone Number [facility] DEPARTMENT OF [address] [place] [address] PATHOLOGY AND GENOMIC MEDICINE [address] * Estimated GFR (07/08/2018 11:34 PM INDUSTRIAL ENGINEERING) Only the most recent of 2 results within the time period is included. Estimated GFR >=90 mL/min/1.73 m2 [facility] Comment: [facility] CatergoryUnitsInte rpretation G1 >=90 Normal or high G2 60-89Mildly decreased D0b10-17 Mildly to moderately decreased D7b22-30 Moderately to severely decreased G4 15-29Severely decreased G5 <15Kidney failure The eGFR was calculated using the Chronic Kidney Disease Epidemiology Collaboration (CKD-EPI) equation. Interpretation is based on recommendations of the National Kidney Foundation-Kidney Disease Outcomes Quality Initiative (NKF-KDOQI) published in 2014. Specimen Plasma specimen Performing Organization Address City/[facility]/Zipcode Phone Number [facility] [address] [place] [id number] PATHOLOGY AND GENOMIC MEDICINE [address] * Troponin (07/08/2018 11:34 PM INDUSTRIAL ENGINEERING) Only the most recent of 3 results within the time period is included. Troponin <0.30 0.00 - 0.30 ng/mL [facility] Comment: [facility] 0.11 - 1.49 ng/mlMay indicate increased risk of acute coronary syndrome. >=1.5 ng/ml Consistent with acute myocardial infarction. The diagnostic value of a single normal or non-diagnostic result is questionable.Serial samples at 2-6 hour intervals are required to rule out acute myocardial injury. Specimen Plasma specimen Performing Organization Address City/[facility] [place] [address] PATHOLOGY AND GENOMIC MEDICINE [address] * CBC with platelet and differential (07/08/2018 11:34 PM INDUSTRIAL ENGINEERING) Only the most recent of 2 results within the time period is included. WBC 8.6 4.2 - 11.0 k/uL [facility] RBC 3.72 (L) 4.04 - 5.86 m/uL [facility] HGB 12.0 11.5 - 15.3 g/dL [facility] HCT 36.0 34.0 - 45.0 % [facility] MCV 96.8 80.0 - 98.0 fL [facility] MCH 32.3 27.0 - 34.0 pg [facility] MCHC 33.3 31.5 - 36.5 g/dL [facility] RDW - SD 41.4 37.0 - 51.0 fL [facility] MPV 9.2 7.4 - 10.4 fL [facility] Platelet count 335 150 - 400 k/uL [facility] Nucleated RBC 0.00 /100 WBC [facility] Neutrophils 66.0 36.0 - 66.0 % [facility] Lymphocytes 24.2 24.0 - 44.0 % [facility] Monocytes 8.0 (H) 0.0 - 6.0 % [facility] Eosinophils 1.3 0.0 - 6.0 % [facility] Basophils 0.3 0.0 - 1.2 % [facility] Immature granulocytes 0.2 0.0 - 1.0 % [facility] Specimen Blood Performing Organization Address City/State/Zipcode Phone Number [facility] DEPARTMENT OF [address] [place] [address] PATHOLOGY AND GENOMIC MEDICINE [facility] [address] [place], [place] [phone] [place] [address] * Comprehensive metabolic panel (07/08/2018 11:34 PM INDUSTRIAL ENGINEERING) Only the most recent of 2 results within the time period is included. Sodium 137 135 - 150 mEq/L [facility] Potassium 3.2 (L) 3.5 - 5.0 mEq/L [facility] Chloride 102 98 - 112 mEq/L [facility] CO2 23 (L) 24 - 31 mmol/L [facility] Anion gap 12@ANIO 7 - 15 mEq/L [facility] BUN 8 7 - 18 mg/dL [facility] Creatinine 0.50 0.50 - 0.90 mg/dL [facility] Glucose 100 65 - 100 mg/dL [facility] Calcium 9.2 8.3 - 10.2 mg/dL [facility] Protein 6.8 6.3 - 8.3 g/dL [facility] Albumin 3.4 (L) 3.5 - 5.0 g/dL [facility] A/G ratio 1.0 0.7 - 3.8 [facility] Alkaline phosphatase 62 0 - 104 U/L [facility] AST 15 10 - 35 U/L [facility] ALT 14 5 - 50 U/L [facility] Total bilirubin <0.3 0.2 - 1.2 mg/dL [facility] Specimen Plasma specimen Performing Organization Address City/State/Zipcode Phone Number [facility] DEPARTMENT OF [address] [place] [address] PATHOLOGY AND GENOMIC MEDICINE [facility] [address] [place], [place] [phone] [place] [address] * ECG ED Preliminary Interpretation - Not an Order (07/08/2018 11:13 PM INDUSTRIAL ENGINEERING) Only the most recent of 2 results within the time period is included. Narrative Performed At Gurvinder Egan Jr., MD 07/09/20182:36 PM ECG ED Preliminary Interpretation - Not an Order Performed by: Gurvinder Egan Jr., MD Authorized by: Gurvinder Egan Jr., MD ECG reviewed by ED Physician in the absence of a implementation analyst: yes Interpretation: Interpretation: normal Rate: ECG rate:73 ECG rate assessment: normal Rhythm: Rhythm: sinus rhythm Ectopy: Ectopy: none QRS: QRS axis:Normal QRS intervals:Normal Conduction: Conduction: normal ST segments: ST segments:Normal T waves: T waves: normal Comments: No STEMI. * Respiratory pathogen panel (07/08/2018 11:04 PM INDUSTRIAL ENGINEERING) Respiratory pathogen Negative for all pathogens [facility] panel tested: HOSPITAL Negative for Adenovirus Negative [...] Specimen Nares - Right Performing Organization Address City/[facility]/Zipcode Phone Number [facility] DEPARTMENT OF [address] [place] [address] PATHOLOGY AND GENOMIC MEDICINE [facility] [address] [place], [place] [phone] [place] [address] * Influenza antigen test, reflex negative to RPP (07/08/2018 11:04 PM INDUSTRIAL ENGINEERING) Influenza antigen Negative for Influenza A/B [facility]. [facility] Comment: Specimen Information Specimen Source: Nares Specimen Site: Right Specimen Nares - Right Performing Organization Address [facility]/Zipcode Phone Number [facility] [address] [facility] [place] [address] PATHOLOGY AND GENOMIC MEDICINE [place] [address] [facility] [address], [place] [phone] [place] [address] * ECG 12 lead (07/08/2018 10:53 PM INDUSTRIAL ENGINEERING) Only the most recent of 2 results within the time period is included. Ventricular rate 73 [facility] Atrial rate 73 [facility] DE interval 176 [facility] QRSD interval 86 [facility] QT interval 400 [facility] QTC interval 440 [facility] P axis 1 33 [facility] QRS axis 1 44 [facility] T wave axis 62 [facility] EKG impression Normal sinus rhythm-Normal [facility] MUSE ECG-In automated comparison with ECG of 04-JUN-2018 22:38,-No significant change was found- Narrative Performed At Performing Organization Address [facility] Phone Number [facility] MUSE [address] [place] [address] * XR Chest 2 Vw (07/08/2018 10:34 PM INDUSTRIAL ENGINEERING) Narrative Performed At EXAMINATION:XR CHEST 2 VW HM [facility] CLINICAL HISTORY:body aches COMPARISON:06/04/2018. FINDINGS: Two views of the chest demonstrate normal cardiomediastinal silhouette. Pulmonary vasculature is within normal limits. Both lungs are clear. No pleural disease is identified. Regional osseous structures is unremarkable. IMPRESSION: No radiographic evidence of acute cardiopulmonary process or active disease of the chest. [facility]-[id number] Procedure Note Interface, Radiology Results Incoming - 07/08/2018 10:46 PM INDUSTRIAL ENGINEERING EXAMINATION: XR CHEST 2 VW CLINICAL HISTORY: body aches COMPARISON: 06/04/2018. FINDINGS: Two views of the chest demonstrate normal cardiomediastinal silhouette. Pulmonary vasculature is within normal limits. Both lungs are clear. No pleural disease is identified. Regional osseous structures is unremarkable. IMPRESSION: No radiographic evidence of acute cardiopulmonary process or active disease of the chest. [facility]-[id number] Performing Organization Address [facility] Phone Number [facility] [address] [place] [address] * XR Chest 1 Vw Portable (06/05/2018 12:05 AM INDUSTRIAL ENGINEERING) Narrative Performed At Examination:XR CHEST 1 [facility]W [facility] Clinical History:chest pain Comparison: None. Technique: Single frontal view of the chest is obtained. Findings: The lungs are free of infiltrate. The heart size is normal. No pleural effusion is seen. Impression: No active cardiopulmonary disease identified. [facility]-[id number] Procedure Note Interface, Radiology Results Incoming - 06/05/2018 12:33 AM INDUSTRIAL ENGINEERING Examination: XR CHEST 1 VW PORTABLE Clinical History: chest pain Comparison: None. Technique: Single frontal view of the chest is obtained. Findings: The lungs are free of infiltrate. The heart size is normal. No pleural effusion is seen. Impression: No active cardiopulmonary disease identified. [facility]-[id number] Performing Organization Address [facility] Phone Number [facility] [address] [place] [address] * B natriuretic peptide (06/04/2018 10:45 PM INDUSTRIAL ENGINEERING) BNP 90 0 - 100 pg/mL [facility] Specimen Blood Performing Organization Address [facility] Cent[facility]ode Phone Number [facility] OF [address] [place] [address] PATHOLOGY AND GENOMIC MEDICINE [place] [address] [address] after 10/05/2017 Insurance Payer Benefit Subscriber ID Type Phone Address Plan / Group BCBS BCBS xxxxxxxxxxxx PPO CHOICE PPO/NITO CARVAJAL PPO Advance Directives Patient has advance care planning documents on file. For more information, catalino glass contact: Ryan Hamilton [address] [place] [address]
--- NOTE | 2018-10-06 17:45 | NUR ---
MD AWARE OF PT ON ARRIVAL.
[2018-10-06] MEDS ORDERED: FENTANYL CITRATE/PF 100MCG/2 ML INJ IV ONE (18:00)
--- NOTE | 2018-10-06 18:31 | NUR ---
PT NOTIFIED SHE CANNOT DRIVE ONCE MEDICATED WITH FENTENYL AFTER D/C; PT AWARE SHE MUST HAVE RIDE. PT STATES SHE WILL CALL AN UBER. STATES HE IS OK WITH PT RECEIVING FENTENYL.
[2018-10-06] MEDS ORDERED: POTASSIUM CHLORIDE 20 MEQ TAB CR PO STA (18:41)
[2018-10-06] MEDS ORDERED: ONDANSETRON HCL INJ 2MG/ML 2ML 2 MG/ML VIAL IV STA (18:41)
[2018-10-06] MEDS: SODIUM CHLORIDE 0.9% 1000ML 1,000 ML IV SCH ×2 (18:45→19:15)
--- NOTE | 2018-10-06 19:06 | Diagnostic Imaging Report ---
EXAMINATION: CT of the chest, abdomen and pelvis with contrast. TECHNIQUE: Helical CT images of the chest, abdomen and pelvis were performed from the lung apices to the lesser trochanters after the intravenous administration of 100 cc of Isovue 300 and the oral administration of none. Coronal and sagittal reformatted images were obtained. Dose modulation, iterative reconstruction, and/or weight based adjustment of the mA/kV was utilized to reduce the radiation dose to as low as reasonably achievable. COMPARISON: None. CLINICAL HISTORY:Pain DISCUSSION: CHEST: LINES/TUBES: None. LUNGS AND AIRWAYS: The lungs and airways are normal with no focal abnormality demonstrated. No pulmonary blood. PLEURA: The pleural spaces are clear. HEART AND MEDIASTINUM: The thyroid gland is normal. The heart and pericardium are within normal limits. LYMPH NODES: No significant mediastinal, hilar or axillary lymphadenopathy is seen. BONES AND SOFT TISSUES: No bony destructive lesions. No soft tissue abnormalities. ABDOMEN/PELVIS: HEPATOBILIARY:No focal hepatic lesions. No biliary ductal dilation. The gallbladder is normal. SPLEEN: No splenomegaly. PANCREAS: No focal masses or ductal dilatation. ADRENALS: No adrenal nodules. KIDNEYS/URETERS: 2 punctate calculi within the right kidney. PELVIC ORGANS/BLADDER: The bladder is unremarkable. Left adnexal cysts measuring up to 2.5 cm. PERITONEUM/RETROPERITONEUM: No free air or fluid. LYMPH NODES: No intra-abdominal,retroperitoneal, pelvic or inguinal lymphadenopathy. VESSELS: Pelvic phlebolith. GI TRACT: No distention or wall thickening. BONES AND SOFT TISSUES: No bony destructive lesions. No soft tissue abnormalities. IMPRESSION: No pulmonary embolism. 2 punctate right renal calculi. Signed by: Dr. Rakesh Cherry M.D. on 10/06/2018 7:02 PM
== END 2018-10-06 19:49 | disposition home or self-care (01) ==
LOC: FSED 17:16
DX: R10.84 Generalized abdominal pain (principal); R07.89 Other chest pain; I10 Essential (primary) hypertension; Z87.442 Personal history of urinary calculi; Z79.82 Long term (current) use of aspirin
CPT/HCPCS: 71260; 74177; 80053; 82553; 84484; 85025; 93005; 99284; J2405; J7030